=== PATIENT | female | born 1975 | race Asian ===

== ENCOUNTER 2018-05-04 12:00 | Emergency (ER) | payer OTHER, SELFPAY ==
[2018-05-04] VITALS (10 sets, daily range): BP systolic 000–141; BP diastolic 55–88; PULSE 64–73; RESP 12–16; TEMP 36.4; O2SAT 100; BMI 28.3
[2018-05-04 14:12] LABS: BUN Creatinine Ratio 16.7 (6-22); Blood Urea Nitrogen 10 mg/dL (7-17); Calcium 8.6 mg/dL (8.4-10.2); Carbon Dioxide 27 mmol/L (22-32); Chloride 95 mmol/L (98-107); Estimated Glomerular Filt Rate > 60.0 mL/min (>60); Glucose 87 mg/dL (70-100); HEMOLYSIS < 15 (0-50); Potassium 2.8 mmol/L (3.4-5.1); Sodium 133 mmol/L (137-145)
[2018-05-04 14:17] LABS: Add Manual Diff / Slide Review NO; Basophils Absolute Auto 100 /uL (0-100); Basophils Percent Auto 0.7 % (0-2); Eosinophils Absolute Auto 100 /uL (0-450); Eosinophils Percent Auto 1.4 % (2-4); Hematocrit 26.7 % (36-46); Hemoglobin 8.5 g/dL (12.0-16.0); Lymphocytes Absolute Auto 1600 /uL (1100-4500); Lymphocytes Percent Auto 19.8 % (25-40); Mean Corpuscular HGB Conc 31.8 % (30-36); Mean Corpuscular Hemoglobin 22.1 PG (26-34); Mean Corpuscular Volume 69.4 fL (80-100); Monocytes Absolute Auto 500 /uL (0-900); Monocytes Percent Auto 5.7 % (3-14); Neutrophils Absolute Auto 5700 /uL (1500-7000); Neutrophils Percent Auto 72.4 % (50-75); Platelet Count 361 X10^3/uL (150-400); Red Blood Cell Count 3.85 X10^6/uL (4.0-5.2); Red Cell Distribution Width 16.3 % (11.6-14.8); White Blood Cell Count 7.9 X10^3/uL (4.5-11.0)
[2018-05-04 14:25] LABS: Troponin I < 0.012 ng/mL (0.01-0.034)
--- NOTE | 2018-05-04 14:25 | ED_ITS ---
HPI - Dizziness <STELLA Meyers - Last Filed: 05/04/18 21:56> General Chief Complaint: Dizziness Stated Complaint: DIZZY Time Seen by Provider: 05/04/18 14:25 Source: patient Mode of arrival: ambulatory Limitations: no limitations History of Present Illness HPI Narrative: 42-year-old female with history of hypertension here for complaint of having dizziness for the past day and half. She also reports she fell as she has had some slight chest pressure/pain that started today and happe ns ago as well. She denies any trauma to the chest. No shortness of breath. She is ambulatory to the emergency room. When asked differentiate between dizziness and lightheadedness she states that it feels a little of both. She denies any nausea or vomiting. No fevers no chills. No other concerns or complaints at this timeframe. She denies any stressors or relievers of her symptoms. complaint: dizziness Related Data Home Medications Medication Instructions Recorded Confirmed hydrochlorothiazide 25 mg PO 1500 05/04/18 05/04/18 lisinopril 20 mg PO 1500 05/04/18 05/04/18 melatonin 3 mg PO BEDTIME PRN 05/04/18 05/04/18 sertraline 50 mg PO BEDTIME 05/04/18 05/04/18 Previous Rx's Medication Instructions Recorded potassium chloride 20 meq PO DAILY #7 tab 05/04/18 Allergies Allergy/AdvReac Type Severity Reaction Status Date / Time No Known Drug Allergies Allergy Verified 05/04/18 14:42 Review of Systems <STELLA Meyers - Last Filed: 05/04/18 21:56> Constitutional Denies chills, Denies fatigue, Denies fever(s), Denies lethargy and Denies weakness Eyes Denies change in vision, Denies eye discharge, Denies irritation and Denies loss of vision ENT Ears, Nose, Mouth, and Throat: Denies change in voice, Denies neck pain and Denies sore throat Cardiovascular Denies dyspnea and Denies dyspnea on exertion Comments: Dizziness mild chest pain Respiratory Denies cough, Denies dyspnea, Denies dyspnea on exertion and Denies wheezing Gastrointestinal Gastrointestinal: Denies abdominal pain, Denies change in bowel habits, Denies diarrhea, Denies nausea and Denies vomiting Genitourinary Denies hematuria, Denies flank pain, Denies urinary incontinence and Denies urinary urgency Musculoskeletal Denies neck pain Integumentary/Breasts Denies pruritus, Denies erythema, Denies rash and Denies wounds Neurologic Denies confusion, Denies loss of vision and Denies weakness Psychiatric Denies anxiety, Denies confusion, Denies depression, Denies homicidal ideation and Denies suicidal ideation Endocrine Denies fatigue and Denies flushing Hematologic/Lymphatic Denies easy bruising Allergic/Immunologic Denies wheezing PFSH <STELLA Meyers - Last Filed: 05/04/18 21:56> Social History Smoking Status: Never smoker Social History Smoking Status: Never smoker Exam <STELLA Meyers - Last Filed: 05/04/18 21:56> Initial Vital Signs Initial Vital Signs: Vital Signs Temperature 97.5 F L 05/04/18 12:02 Pulse Rate 71 05/04/18 12:02 Respiratory Rate 15 05/04/18 12:02 Blood Pressure 141/80 H 05/04/18 12:02 Pulse Oximetry 100 05/04/18 12:02 Const General: cooperative and well developed Nutritional Appearance: well nourished Orientation: alert, awake, oriented x3 and not confused HENIA Mouth: oral mucosae normal and mucous membranes abnormal Throat: posterior oropharynx normal Eyes General: appearance normal, both eyes and all related structures Conjunctivae: conjunctivae normal Sclera: sclerae normal Pupils: PERRL EOM: EOM intact bilaterally and No nystagmus Chest Chest: normal inspection of the chest Resp Effort & Inspection: normal respiratory effort, able to speak in complete sentences, no respiratory distress and no use of accessory muscles Auscultation: clear to auscultation bilaterally, no rales, no rhonchi and no wheezes Cardio Rate: regular rate Rhythm: regular rhythm Heart Sounds: no click, no gallops, no murmurs and no rubs GI Inspection: non-distended Palpation: soft, no hepatosplenomegaly, No guarding, No pulsatile mass and No tender Auscultation: normal bowel sounds Rectal Exam: visual inspection normal, normal sphincter tone and heme negative stool Skin General: no rashes or lesions noted, No jaundice and No petechiae Neuro General: alert, oriented x3, gait normal and no focal motor deficits Cranial Nerves: No nystagmus Speech: speech normal <Dimas Gipson DO - Last Filed: 05/05/18 20:50> Initial Vital Signs Initial Vital Signs: Vital Signs Temperature 97.5 F L 05/04/18 12:02 Pulse Rate 71 05/04/18 12:02 Respiratory Rate 15 05/04/18 12:02 Blood Pressure 141/80 H 05/04/18 12:02 Pulse Oximetry 100 05/04/18 12:02 Course <STELLA Meyers - Last Filed: 05/04/18 21:56> Orders Ordered: Discontinued Medications Sodium Chloride (Normal Saline 0.9%) 1,000 mls @ 1,000 mls/hr IV BOLUS ONE Stop: 05/04/18 15:37 Last Infusion: 05/04/18 16:32 Dose: 0 mls/hr Admin: 05/04/18 15:01 Dose: 1,000 mls/hr Meclizine HCl (Antivert) 25 mg PO NOW ONE Stop: 05/04/18 14:41 Last Admin: 05/04/18 15:12 Dose: Not Given Potassium Chloride (Potassium Chloride) 40 meq PO NOW ONE Stop: 05/04/18 16:20 Last Admin: 05/04/18 16:28 Dose: 40 meq Vital Signs - 8 hr 05/04/18 14:00 05/04/18 14:30 05/04/18 15:30 Pulse Rate 66 64 67 Respiratory Rate 13 12 13 Blood Pressure [Right Arm] 116/71 115/66 123/76 Pulse Oximetry 100 100 100 05/04/18 16:00 05/04/18 16:30 05/04/18 17:00 Pulse Rate 70 73 Respiratory Rate 16 16 Blood Pressure [Right Arm] 126/68 139/88 118/72 Pulse Oximetry 100 100 05/04/18 17:46 05/04/18 18:00 Pulse Rate 70 67 Respiratory Rate 16 14 Blood Pressure [Right Arm] 118/60 000/55 L Pulse Oximetry 100 100 <Dimas Gipson DO - Last Filed: 05/05/18 20:50> Orders Ordered: Discontinued Medications Sodium Chloride (Normal Saline 0.9%) 1,000 mls @ 1,000 mls/hr IV BOLUS ONE Stop: 05/04/18 15:37 Last Infusion: 05/04/18 16:32 Dose: 0 mls/hr Admin: 05/04/18 15:01 Dose: 1,000 mls/hr Meclizine HCl (Antivert) 25 mg PO NOW ONE Stop: 05/04/18 14:41 Last Admin: 05/04/18 15:12 Dose: Not Given Potassium Chloride (Potassium Chloride) 40 meq PO NOW ONE Stop: 05/04/18 16:20 Last Admin: 05/04/18 16:28 Dose: 40 meq Vital Signs - 8 hr 05/04/18 14:00 05/04/18 14:30 05/04/18 15:30 Pulse Rate 66 64 67 Respiratory Rate 13 12 13 Blood Pressure [Right Arm] 116/71 115/66 123/76 Pulse Oximetry 100 100 100 05/04/18 16:00 05/04/18 16:30 05/04/18 17:00 Pulse Rate 70 73 Respiratory Rate 16 16 Blood Pressure [Right Arm] 126/68 139/88 118/72 Pulse Oximetry 100 100 05/04/18 17:46 05/04/18 18:00 Pulse Rate 70 67 Respiratory Rate 16 14 Blood Pressure [Right Arm] 118/60 000/55 L Pulse Oximetry 100 100 MDM - Dizziness <STELLA Meyers - Last Filed: 05/04/18 21:56> Lab Data Result diagrams: 05/04/18 13:53 05/04/18 13:53 Lab Results 05/04/18 05/04/18 05/04/18 Range/Units 13:53 13:53 13:53 WBC 7.9 (4.5-11.0) X10^3/uL RBC 3.85 L (4.0-5.2) X10^6/uL Hgb 8.5 L (12.0-16.0) g/dL Hct 26.7 L (36-46) % MCV 69.4 L (80-100) fL MCH 22.1 L (26-34) PG MCHC 31.8 (30-36) % RDW 16.3 H (11.6-14.8) % Plt Count 361 (150-400) X10^3/uL Neut % (Auto) 72.4 (50-75) % Lymph % (Auto) 19.8 L (25-40) % Dewey % (Auto) 5.7 (3-14) % Eos % (Auto) 1.4 L (2-4) % Baso % (Auto) 0.7 (0-2) % Neut # (Auto) 5700 (9865-7680) /uL Lymph # (Auto) 1600 (7028-6516) /uL Dewey # (Auto) 500 (0-900) /uL Eos # (Auto) 100 (0-450) /uL Baso # (Auto) 100 (0-100) /uL RBC Morphology See below Hypochromasia 1+ H Poikilocytosis 1+ H Anisocytosis 1+ H Microcytosis 1+ H Sodium 133 L (137-145) mmol/L Potassium 2.8 L (3.4-5.1) mmol/L Chloride 95 L (98-107) mmol/L Carbon Dioxide 27 (22-32) mmol/L BUN 10 (7-17) mg/dL Creatinine 0.60 (0.52-1.04) mg/dL Estimated GFR > 60.0 (>60) mL/min BUN/Creatinine Ratio 16.7 (6-22) Glucose 87 (70-100) mg/dL Calcium 8.6 (8.4-10.2) mg/dL Magnesium 2.2 (1.6-2.3) mg/dL Troponin I < 0.012 (0.01-0.034) ng/mL Urine Dip Bedside Urine Glucose Negative Bedside Urine Bilirubin - Negative Bedside Urine Ketone - Negative Urine Specific Squires 1.010 Bedside Urine Occult Blood - Negative Bedside Urine pH 6.0 Bedside Urine Protein - Negative Bedside Urine Urobilinogen - Negative Bedside Urine Nitrite - Negative Bedside Urine Leukocytes - Negative Esterase Imaging Data Chest x-ray: Radiologist's impression: [address] [place] [id number] XRay Report Signed Patient: Kimo Abbott [facility]#: [id number] : 1975Acct:[id number] Age/Sex: 42 / FDate of Service: 05/04/18 Loc: ED Accession Number: [id number] Procedure: XR chest 1V Ordering Provider: Jose Nuñez PROCEDURE: XR CHEST 1V INDICATIONS: Dizziness chest pain TECHNIQUE: One view of the chest was acquired. COMPARISON: [facility], CHEST 1 VIEW, 06/09/2017, 6:45. FINDINGS: Surgical changes and devices: None. Lungs and pleura: Lungs are clear. No pleural effusions or pneumothorax. Mediastinum: Mediastinal contours appear normal. Heart size is normal. Bones and chest wall: No suspicious bony lesions. Overlying soft tissues appear unremarkable. IMPRESSION: Normal for age, source of current chest pain symptoms is not seen. Dictated by: Cosme Nobles M.D. on 05/04/2018 at 15:05 Approved by: Cosme Nobles M.D. on 05/04/2018 at 15:05 CT scan - head: Radiologist's impression: [place] [address] CT Scan Report Signed Patient: Kimo Abbott [facility]#: [id number] : 1975Acct:[id number] Age/Sex: 42 / FDate of Service: 05/04/18 Loc: ED Accession Number: [id number] Procedure: CT head/brain wo con Ordering Provider: Jose Nuñez PROCEDURE: CT HEAD/BRAIN WO CON INDICATIONS: Dizziness TECHNIQUE: Noncontrast 4.5 mm thick angled axial sections acquired from the foramen magnum to the vertex, with coronal and sagittal reformats. For radiation dose reduction, the following was used: automated exposure control, adjustment of mA and/or kV according to patient size. COMPARISON: [facility], CT, HEAD WITHOUT CONTRAST, 06/09/2017, 6:35. FINDINGS: Image quality: Excellent. CSF spaces: Basal cisterns are patent. No extra-axial fluid collections. Ventricles are normal in size and shape. Brain: No midline shift. No intracranial masses or hemorrhage. Olsen-white matter interface is normal. Skull and face: Calvarium and visualized facial bones are intact, without suspicious lesions. Sinuses: Visualized sinuses and mastoids are clear. IMPRESSION: No acute intracranial disease process. Dictated by: Alejandrina Hinton MD, PhD on 05/04/2018 at 15:00 Approved by: Alejandrina Hinton MD, PhD on 05/04/2018 at 15:02 ECG Data Interpretation: EKG shows normal sinus rhythm with no ST elevation or depression. No ectopy. Ventricular rate is 65. Pr interval of 165. QRS duration 86. QTC of 424. MDM Narrative Medical decision making narrative: Chest x-ray was obtained was negative for any acute findings. CT of the head was obtained was now also negative for any acute findings. CBC was obtained shows H&H of 8.5 and 26.7. She denies any dark stools or any blood in her stool. Fecal occult testing was negative. Chem panel shows hypokalemia of 2.8 otherwise unremarkable. Cardiac enzymes were obtained were negative. She was given 40 mEq of potassium in the emergency room. Patient's vital signs remained stable after potassium was given. 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 She does state that she will follow up with her primary care provider tomorrow for further evaluation. Suspect that her potassium levels and her anemia or the cause of her symptoms. Cause of her hypo kalemia and anemia is not found today however patient does state that she did have heavy flow on her last menstrual cycle. Patient does state that she is feeling better. Return emergency room for worsening symptoms. <Dimas Gipson DO - Last Filed: 05/05/18 20:50> Lab Data Lab Results 05/04/18 05/04/18 05/04/18 Range/Units 13:53 13:53 13:53 WBC 7.9 (4.5-11.0) X10^3/uL RBC 3.85 L (4.0-5.2) X10^6/uL Hgb 8.5 L (12.0-16.0) g/dL Hct 26.7 L (36-46) % MCV 69.4 L (80-100) fL MCH 22.1 L (26-34) PG MCHC 31.8 (30-36) % RDW 16.3 H (11.6-14.8) % Plt Count 361 (150-400) X10^3/uL Neut % (Auto) 72.4 (50-75) % Lymph % (Auto) 19.8 L (25-40) % Dewey % (Auto) 5.7 (3-14) % Eos % (Auto) 1.4 L (2-4) % Baso % (Auto) 0.7 (0-2) % Neut # (Auto) 5700 (7001-7419) /uL Lymph # (Auto) 1600 (3197-0600) /uL Dewey # (Auto) 500 (0-900) /uL Eos # (Auto) 100 (0-450) /uL Baso # (Auto) 100 (0-100) /uL RBC Morphology See below Hypochromasia 1+ H Poikilocytosis 1+ H Anisocytosis 1+ H Microcytosis 1+ H Sodium 133 L (137-145) mmol/L Potassium 2.8 L (3.4-5.1) mmol/L Chloride 95 L (98-107) mmol/L Carbon Dioxide 27 (22-32) mmol/L BUN 10 (7-17) mg/dL Creatinine 0.60 (0.52-1.04) mg/dL Estimated GFR > 60.0 (>60) mL/min BUN/Creatinine Ratio 16.7 (6-22) Glucose 87 (70-100) mg/dL Calcium 8.6 (8.4-10.2) mg/dL Magnesium 2.2 (1.6-2.3) mg/dL Troponin I < 0.012 (0.01-0.034) ng/mL Urine Dip Bedside Urine Glucose Negative Bedside Urine Bilirubin - Negative Bedside Urine Ketone - Negative Urine Specific Squires 1.010 Bedside Urine Occult Blood - Negative Bedside Urine pH 6.0 Bedside Urine Protein - Negative Bedside Urine Urobilinogen - Negative Bedside Urine Nitrite - Negative Bedside Urine Leukocytes - Negative Esterase Discharge Plan Departure Patient Disposition: Home Clinical Impression: Acute hypokalemia, Dizziness Anemia Qualifiers: Anemia type: unspecified type Qualified Code(s): D64.9 - Anemia, unspecified Discharge Date/Time: 05/04/18 18:34 Interventions: ED Discharge Assessment Last Done: 05/04/18 18:33 Instructions: DI for Hypokalemia, DI for Dizziness-Nonvertigo Activity Restrictions/Additional Instructions: Laboratory results show anemia with decreased hemoglobin and hematocrit. Laboratory results also show hypokalemia which is low potassium in the blood. Urine given potassium orally here. Other laboratory results were unremarkable. Imaging today was unremarkable. Low potassium and anemia a most likely cause of her symptoms. Follow up with her doctor tomorrow for re-evaluation and further monitoring. You are given prescription for potassium use as directed for the next week. For any worsening symptoms return to the emergency room. Prescriptions: New potassium chloride 20 mEq tablet extended release 20 meq PO DAILY Qty: 7 RF: 0 No Action lisinopril 20 mg tablet 20 mg PO 1500 RF: 0 hydrochlorothiazide 25 mg tablet 25 mg PO 1500 RF: 0 sertraline 50 mg tablet 50 mg PO BEDTIME RF: 0 melatonin 3 mg Tablet 3 mg PO BEDTIME PRN (Reason: Sleep) RF: 0 [facility] <Dimas Gipson DO - Last Filed: 05/05/18 20:50> Cosign ED Attending Kati Attestation: I was immediately available in the department for consultation. Documentation has been reviewed. I agree with assessment and plan.
--- NOTE | 2018-05-04 14:39 | DI.RAD.S_ITS ---
PROCEDURE: XR CHEST 1V INDICATIONS: Dizziness chest pain TECHNIQUE: One view of the chest was acquired. COMPARISON: [facility], , CHEST 1 VIEW, 06/09/2017, 6:45. FINDINGS: Surgical changes and devices: None. Lungs and pleura: Lungs are clear. No pleural effusions or pneumothorax. Mediastinum: Mediastinal contours appear normal. Heart size is normal. Bones and chest wall: No suspicious bony lesions. Overlying soft tissues appear unremarkable. IMPRESSION: Normal for age, source of current chest pain symptoms is not seen. Dictated by: Cosme Nobles M.D. on 05/04/2018 at 15:05 Approved by: Cosme Nobles M.D. on 05/04/2018 at 15:05
--- NOTE | 2018-05-04 14:39 | DI.CT.S_ITS ---
PROCEDURE: CT HEAD/BRAIN WO CON INDICATIONS: Dizziness TECHNIQUE: Noncontrast 4.5 mm thick angled axial sections acquired from the foramen magnum to the vertex, with coronal and sagittal reformats. For radiation dose reduction, the following was used: automated exposure control, adjustment of mA and/or kV according to patient size. COMPARISON: [facility], CT, HEAD WITHOUT CONTRAST, 06/09/2017, 6:35. FINDINGS: Image quality: Excellent. CSF spaces: Basal cisterns are patent. No extra-axial fluid collections. Ventricles are normal in size and shape. Brain: No midline shift. No intracranial masses or hemorrhage. Olsen-white matter interface is normal. Skull and face: Calvarium and visualized facial bones are intact, without suspicious lesions. Sinuses: Visualized sinuses and mastoids are clear. IMPRESSION: No acute intracranial disease process. Dictated by: Alejandrina Hinton MD, PhD on 05/04/2018 at 15:00 Approved by: Alejandrina Hinton MD, PhD on 05/04/2018 at 15:02
[2018-05-04 14:42] LABS: Anisocytosis 1+; Hypochromasia 1+; Microcytosis 1+; Poikilocytosis 1+
[2018-05-04] MEDS: SODIUM CHLORIDE 0.9% 1,000 ML 1000 ML IV (15:01)
--- NOTE | 2018-05-04 16:07 | PC.NURSE ---
pt dizziness after shoveling snow, denies fever,coughing, vomiting or diarrhea, pt takes, hctz 25mg po daily for 4 years. denies taking any supplemental. denies chest pain or shortness of breath at this time alert and awake, conversing appropriately, skin warm dry pink, moving all ext.
[2018-05-04] MEDS: POTASSIUM CHLORIDE 20 MEQ/15 ML UDC 40 MEQ PO (16:28)
[2018-05-04 16:29] LABS: Magnesium 2.2 mg/dL (1.6-2.3)
--- NOTE | 2018-05-04 17:44 | PC.NURSE ---
pt anxious to get home, advised to stay till 630 for cardiac observations, pt admits, getting better after potassium, no longer has dizziness, no longer has chest discomfort. pt able to ambulate to bathroom, voided, with steady gait.
== END 2018-05-04 18:34 | disposition home or self-care (01) ==
PROVIDERS: Emergency Medicine; Emergency Provider Nurse Practitioner Family
DX: E87.6 Hypokalemia (principal); D64.9 Anemia, unspecified; R42 Dizziness and giddiness
CPT/HCPCS: 36591; 70450; 71045; 80048; 81003; 83735; 84484; 85025; 93005; 93041; 96360; 96361; 99285